=== PATIENT | male | born 1955 | race Native Hawaiian/Other Pacific Islander ===

== ENCOUNTER 2016-05-27 07:20 | Outpatient (CLI) | payer OTHER ==
[~2016-05-27] VITALS: Ht 175.3 cm; Wt 92.1 kg
[~2016-05-27 07:20] MED LIST: MOBIC15 MG PO; PRAVACHOL20 MG PO; VITAMIN B-12500 MCG PO; VITAMIN D35000 UNI1 PO
== END 2016-05-27 09:20 | disposition home or self-care (01) ==
LOC: NM 07:20
DX: I71.9 Aortic aneurysm of unspecified site, without rupture (principal); R09.89 Other specified symptoms and signs involving the circulatory and respiratory systems
CPT/HCPCS: A9500; J2785

== ENCOUNTER 2017-01-18 10:00 | Observation (INO) | payer OTHER ==
[~2017-01-18] VITALS: Ht 177.8 cm; Wt 98.5 kg
[2017-01-18 13:31] LABS: PLATELET COUNT 181 K/uL (142-355)
[2017-01-18 14:05] LABS: POTASSIUM 3.8 mmol/L (3.6-5.2); SODIUM 138 mmol/L (136-145)
[2017-01-18 14:06] LABS: PARTIAL THROMBOPLASTIN TIME 25.5 SECONDS (24.5-33.6)
[2017-01-18 17:40] VITALS: BP 133/76; TEMP 98.3; Ht 177.8 cm; Wt 98.5 kg
[2017-01-18 20:00] VITALS: BP 117/73; TEMP 98
[2017-01-19] VITALS: BP 134/78; TEMP 97.8
[2017-01-19 03:36] LABS: PLATELET COUNT 160 K/uL (142-355)
[2017-01-19 03:58] LABS: POTASSIUM 3.7 mmol/L (3.6-5.2); SODIUM 138 mmol/L (136-145)
[2017-01-19 04:00] VITALS: BP 127/78; TEMP 97.4
[2017-01-19 08:00] VITALS: BP 111/77; TEMP 97.6
== END 2017-01-19 11:19 | disposition home or self-care (01) ==
LOC: MED/SURG 10:00
PROVIDERS: ADMIT Family Medicine
DX: R07.89 Other chest pain (principal); R00.1 Bradycardia, unspecified
CPT/HCPCS: 36415; 80053; 82550; 83735; 84484; 85027; 85610; 85730; 93005; 96372; 99220; G0378; G0379; J1650

== ENCOUNTER 2018-10-04 12:30 | Outpatient (CLI) | payer BC ==
[2018-10-04 13:14] LABS: PLATELET COUNT 215 K/uL (142-355)
== END 2018-10-04 23:45 | disposition home or self-care (01) ==
LOC: LABW 12:30
PROVIDERS: Internal Medicine Cardiovascular Disease
DX: B99.9 Unspecified infectious disease (principal)
CPT/HCPCS: 36415; 81000; 85027

== ENCOUNTER 2019-12-13 09:33 | Outpatient (CLI) | payer BC | END 2019-12-13 21:07 | disposition home or self-care (01) | LOC: RAD 09:33 | DX: M79.604 Pain in right leg (principal); M54.17 Radiculopathy, lumbosacral region ==

== ENCOUNTER 2019-12-21 09:15 | Outpatient (CLI) | payer BC | END 2019-12-21 20:36 | disposition home or self-care (01) | LOC: US 09:15 | DX: M79.604 Pain in right leg (principal); M54.17 Radiculopathy, lumbosacral region ==

== ENCOUNTER 2020-02-06 09:48 | Outpatient (CLI) | payer OTHER ==
[2020-02-06 10:48] LABS: POTASSIUM 4.2 mmol/L (3.6-5.2)
[2020-02-06 11:14] LABS: PLATELET COUNT 179 K/uL (142-355)
== END 2020-02-06 22:22 | disposition home or self-care (01) ==
LOC: LABW 09:48
PROVIDERS: Internal Medicine Cardiovascular Disease
DX: Z79.899 Other long term (current) drug therapy (principal)
CPT/HCPCS: 36415; 80053; 80061; 85027

== ENCOUNTER 2020-02-19 08:23 | Outpatient (CLI) | payer OTHER | END 2020-02-19 20:12 | disposition home or self-care (01) | LOC: CT 08:23 | DX: I73.9 Peripheral vascular disease, unspecified (principal) ==

== ENCOUNTER 2020-07-23 10:22 | Outpatient (CLI) | payer OTHER | END 2020-07-23 22:42 | disposition home or self-care (01) | LOC: US 10:22 | PROVIDERS: ATTEND Nurse Practitioner Family | DX: S70.12XA Contusion of left thigh, initial encounter (principal) ==

== ENCOUNTER 2021-01-08 09:53 | Outpatient (CLI) | payer OTHER | END 2021-01-08 20:10 | disposition home or self-care (01) | LOC: US 09:53 | PROVIDERS: ATTEND Internal Medicine Cardiovascular Disease | DX: R09.89 Other specified symptoms and signs involving the circulatory and respiratory systems (principal) ==

== ENCOUNTER 2021-01-23 09:31 | Outpatient (CLI) | payer OTHER | END 2021-01-23 19:01 | disposition home or self-care (01) | LOC: US 09:31 | PROVIDERS: ATTEND Nurse Practitioner Primary Care | DX: R22.32 Localized swelling, mass and lump, left upper limb (principal) ==

== ENCOUNTER 2021-05-29 09:01 | Outpatient (CLI) | payer OTHER ==
[~2021-05-29] VITALS: Ht 177.8 cm; Wt 95.4 kg
== END 2021-05-29 20:29 | disposition home or self-care (01) ==
LOC: INF 09:01
PROVIDERS: ATTEND Nurse Practitioner Primary Care
DX: U07.1 COVID-19 (principal); Z23 Encounter for immunization
CPT/HCPCS: 96365; Q0247

== ENCOUNTER 2021-06-02 09:06 | Outpatient (CLI) | payer OTHER ==
[2021-06-02 09:20] LABS: PLATELET COUNT 190 K/uL (142-355)
[2021-06-02 12:07] LABS: POTASSIUM 4.1 mmol/L (3.6-5.2)
== END 2021-06-02 19:17 | disposition home or self-care (01) ==
LOC: LABW 09:06
PROVIDERS: ATTEND Nurse Practitioner Family
DX: E11.69 Type 2 diabetes mellitus with other specified complication (principal)
CPT/HCPCS: 36415; 80053; 83036; 85027

== ENCOUNTER 2021-09-24 12:43 | Outpatient (CLI) | payer OTHER | END 2021-09-24 18:58 | disposition home or self-care (01) | LOC: RAD 12:43 | PROVIDERS: ATTEND Internal Medicine Rheumatology | DX: M06.4 Inflammatory polyarthropathy (principal); M19.041 Primary osteoarthritis, right hand; M19.042 Primary osteoarthritis, left hand ==

== ENCOUNTER 2021-11-10 09:00 | Outpatient (CLI) | payer OTHER | END 2021-11-10 18:52 | disposition home or self-care (01) | LOC: MRI 09:00 | PROVIDERS: ATTEND Nurse Practitioner | DX: M54.59 Other low back pain (principal) ==

== ENCOUNTER 2021-11-19 11:30 | Outpatient (CLI) | payer OTHER ==
[~2021-11-19] VITALS: Ht 177.8 cm; Wt 88.9 kg
[2021-11-19 11:20] VITALS: BP 105/57; TEMP 99.2
[2021-11-19 12:15] VITALS: BP 103/64; TEMP 99
[2021-11-19 12:30] VITALS: BP 99/59; TEMP 98.8
[2021-11-19 13:10] VITALS: BP 103/55; TEMP 99.2
--- NOTE | 2021-11-19 13:56 | NUR ---
1120 PT AMBULATED TO ROOM 1128 FOR OP INFUSION ACCOMPANIED BY SPOUSE. VS OBTAINED, 22G PIV TO RFA X1 ATTEMPT. 1156 BEBTELOVIMAB IVP OVER 30 SECONDS FOLLOWED BY 10ML NS PT TOLERATED WITH NO COMPLAINTS. WILL MONITOR VS PER ORDERS. 1215 PT DENIES ANY COMPLAINTS NOP ADVERSE REACTION SUSPECTED 1305 PT DENIES ANY COMPLAINTS. PT TOLERATED INFUSION WITH NO ADVERSE REACTION SUSPECTED. IV D/C INTACT. SITE CARE PROVIDED. PT AMBULATED OUT OF FACILITY ACCOMPANIED BY SPOUSE TO POV IN NO DISTRESS.
== END 2021-11-19 22:25 | disposition home or self-care (01) ==
LOC: INF 11:30
PROVIDERS: ATTEND Family Medicine
DX: Z23 Encounter for immunization (principal); U07.1 COVID-19
CPT/HCPCS: 96374; Q0222

== ENCOUNTER 2022-05-28 10:08 | Outpatient (CLI) | payer OTHER ==
[2022-05-28 10:20] LABS: PLATELET COUNT 158 K/uL (142-355)
[2022-05-28 10:37] LABS: POTASSIUM 4.8 mmol/L (3.6-5.2)
== END 2022-05-28 19:54 | disposition home or self-care (01) ==
LOC: LABW 10:08
PROVIDERS: ATTEND Internal Medicine Cardiovascular Disease
DX: Z79.899 Other long term (current) drug therapy (principal)
CPT/HCPCS: 36415; 80053; 80061; 85027